=== PATIENT | female | born 1985 | race Caucasian/White ===

== ENCOUNTER 2018-01-09 08:58 | Outpatient (CLI) | payer OTHER | END 2018-01-09 09:05 | disposition home or self-care (01) | LOC: SONOGRAMA 08:58 | DX: E04.2 Nontoxic multinodular goiter (principal) ==

== ENCOUNTER 2018-12-07 11:04 | Day surgery (SDC) | payer OTHER | END 2018-12-07 16:25 | disposition home or self-care (01) | LOC: AMB-ENDOS 11:04 | DX: D13.1 Benign neoplasm of stomach (principal) ==

== ENCOUNTER 2018-12-14 10:35 | Outpatient (CLI) | payer OTHER | END 2018-12-14 10:38 | disposition home or self-care (01) | LOC: SONOGRAMA 10:35 | DX: E04.2 Nontoxic multinodular goiter (principal) ==

== ENCOUNTER 2019-01-31 10:43 | Outpatient (CLI) | payer OTHER | END 2019-01-31 10:52 | disposition home or self-care (01) | LOC: RX STUDY 10:43 | DX: R10.13 Epigastric pain (principal); K21.9 Gastro-esophageal reflux disease without esophagitis ==

== ENCOUNTER 2023-05-29 11:42 | Emergency (ER) | payer OTHER ==
[~2023-05-29] VITALS: Ht 165.1 cm; Wt 81.2 kg
== END 2023-05-29 14:17 | disposition home or self-care (01) ==
LOC: ER 11:42
DX: O26.833 Pregnancy related renal disease, third trimester (principal); B34.9 Viral infection, unspecified; Z20.822 Contact with and (suspected) exposure to COVID-19

== ENCOUNTER 2023-07-26 15:38 | Inpatient (IN) | payer OTHER ==
[~2023-07-26] VITALS: Ht 165.1 cm; Wt 86.2 kg
[2023-07-26] MEDS ORDERED: CONCEPT DHA CA1 EACH PO (16:57)
[2023-07-26] MEDS ORDERED: INFED50 MG/ML IV (16:59)
== END 2023-07-29 13:39 | disposition home or self-care (01) | DRG 807 ==
LOC: LDR 15:38 → OB/GYN 07-27 05:28
PROVIDERS: ADMIT Obstetrics & Gynecology; ATTEND Obstetrics & Gynecology
PROC: 3E0P7VZ Introduction of Hormone into Female Reproductive, Via Natural or Artificial Opening (ICD-10-PCS; 2023-07-26)
PROC: 4A1HXCZ Monitoring of Products of Conception, Cardiac Rate, External Approach (ICD-10-PCS; 2023-07-26)
PROC: 10E0XZZ Delivery of Products of Conception, External Approach (ICD-10-PCS; principal; 2023-07-27)
PROC: 0HQ9XZZ Repair Perineum Skin, External Approach (ICD-10-PCS; 2023-07-27)
PROC: 0UQMXZZ Repair Vulva, External Approach (ICD-10-PCS; 2023-07-27)
PROC: 3E033VJ Introduction of Other Hormone into Peripheral Vein, Percutaneous Approach (ICD-10-PCS; 2023-07-27)
DX: O70.0 First degree perineal laceration during delivery (principal); Z37.0 Single live birth; O71.82 Other specified trauma to perineum and vulva; O99.824 Streptococcus B carrier state complicating childbirth; Z3A.39 39 weeks gestation of pregnancy; Z20.822 Contact with and (suspected) exposure to COVID-19

== ENCOUNTER 2025-06-05 13:31 | Outpatient (CLI) | payer OTHER ==
[2025-06-05 12:11] VITALS: BP 113/73
[~2025-06-05 13:31] MED LIST: CONCEPT DHA CA1 EACH PO; INFED50 MG/ML IV
[2025-06-05] MEDS ORDERED: RINGERS SOLUTION,LACTATED 1,000 ML IV SCH (14:15)
[2025-06-05] MEDS ORDERED: PRENATAL 19 TA1 EAC2 PO (14:21)
[2025-06-05] MEDS ORDERED: NOXIFOL-D32500 UNIT PO (14:22)
[2025-06-05 14:42] LABS: BASO % 0.4 % (0.1-1.2); EOS # 0.06 (0.04-0.54); EOS % 0.6 % (0.7-7.0); LYMPH # 2.08 (1.18-3.74); LYMPH % 22.2 % (19.3-53.1); MEAN PLATELET VOLUME 10.70 fl (9.4-12.4); MONO # 0.79 (0.24-0.82); MONO % 8.4 % (4.7-12.5); NEUT # 6.32 (1.56-6.13); NEUT % 67.8 % (34.0-71.1); RED CELL DISTRIBUTION WIDTH 12.8 % (11.6-14.4)
[2025-06-05 14:43] LABS: URINE APPEARANCE Cloudy; URINE BILIRRUBIN Negative (NEGATIVE); URINE BLOOD Negative; URINE COLOR Yellow; URINE GLUCOSE Negative (NEGATIVE); URINE KETONE Trace (NEGATIVE); URINE LEUKOCYTE Small; URINE NITRATE Negative; URINE PROTEIN Negative (NEGATIVE); URINE UROBILINOGEN 1.0 E.U./dl
[2025-06-05 14:44] LABS: URINE BACTERIA 5449.0 uL (0.0-1933); URINE EPITHELIAL CELLS 85.8 uL (0.0-38.8); URINE RBC 8.3 uL (0.0-20.8); URINE WBC 30.6 uL (0.0-23.2)
[2025-06-05 15:14] LABS: ALT/SGPT 18.0 U/L (12-78); AST/SGOT 11.0 U/L (15-37); BILIRUBIN TOTAL 0.55 mg/dL (0.3-1.2); BUN CREA RATIO 10.0 (7.0-25.0); CREATININE SERUM 0.58 mg/dL (0.55-1.02); GFR 115.14; GLOBULINA 3.9 G/DL (2.4-3.5); GLUCOSE FASTING 86.0 mg/dL (65-100); OSMOLALITY SERUM 276.0 MOSM/KG (275-295)
[2025-06-05 15:31] LABS: INR 1.03
[2025-06-05 15:32] LABS: URINE CAST 0.43 uL (0.0-1.40); URINE CRYSTALS FEW /HPF; URINE MUCUS SCANT
[2025-06-05 15:33] LABS: TYPE CELLS SQUAMOUS; URINE YEAST FEW /hpf
[2025-06-05 15:36] VITALS: BP 118/72
[2025-06-05] MEDS ORDERED: ONDANSETRON HCL 2 MG/ML VIAL IV SCH (17:00)
[2025-06-05 20:33] VITALS: BP 117/75
[2025-06-05 23:22] VITALS: BP 106/69
[2025-06-06 03:32] VITALS: BP 94/59
[2025-06-06 06:17] VITALS: BP 96/60; O2SAT 100
[2025-06-06 10:47] VITALS: BP 96/60
== END 2025-06-06 10:59 | disposition home or self-care (01) ==
LOC: OBS/DEL 13:31
PROVIDERS: Obstetrics & Gynecology; ATTEND Obstetrics & Gynecology
DX: O26.893 Other specified pregnancy related conditions, third trimester (principal); R11.2 Nausea with vomiting, unspecified; Z3A.31 31 weeks gestation of pregnancy

== ENCOUNTER 2025-07-30 17:37 | Outpatient (CLI) | payer OTHER ==
[~2025-07-30] VITALS: Ht 165.1 cm; Wt 90.7 kg
[2025-07-30 17:13] VITALS: BP 113/70; O2SAT 100
[~2025-07-30 17:37] MED LIST changes: +NOXIFOL-D32500 UNIT PO; +PRENATAL 19 TA1 EAC2 PO
[2025-07-30] MEDS ORDERED: PEPCID AC20 MG PO (18:07)
[2025-07-30] MEDS ORDERED: RINGERS SOLUTION,LACTATED 1,000 ML IV SCH (20:00)
[2025-07-30] MEDS ORDERED: FAMOTIDINE/PF 20 MG in 0.9 % SODIUM CHLORIDE 8 ML IV PUSH PRN (20:00)
[2025-07-30] MEDS ORDERED: ACETAMINOPHEN 500 MG GEL..CAP PO PRN (20:00)
[2025-07-30 20:07] VITALS: BP 115/67; O2SAT 100
[2025-07-30] MEDS ORDERED: BUDESONIDE 0.5 MG/2 ML AMPUL.NEB IH SCH (21:00)
[2025-07-30] MEDS ORDERED: GUAIFENESIN 600 MG TABLET.SA PO SCH (21:00)
[2025-07-30 21:35] LABS: BASO % 0.5 % (0.1-1.2); EOS # 0.06 (0.04-0.54); EOS % 0.9 % (0.7-7.0); LYMPH # 1.59 (1.18-3.74); LYMPH % 24.2 % (19.3-53.1); MEAN PLATELET VOLUME 10.80 fl (9.4-12.4); MONO # 0.77 (0.24-0.82); MONO % 11.7 % (4.7-12.5); NEUT # 4.07 (1.56-6.13); NEUT % 62.1 % (34.0-71.1); RED CELL DISTRIBUTION WIDTH 13.6 % (11.6-14.4)
[2025-07-30] MEDS ORDERED: FAMOTIDINE/PF 20 MG/2 ML VIAL ONE (21:39)
[2025-07-30 21:56] LABS: INR 1.0
[2025-07-30 22:04] LABS: ALT/SGPT 15.0 U/L (12-78); AST/SGOT 17.0 U/L (15-37); BILIRUBIN TOTAL 0.54 mg/dL (0.3-1.2); BUN CREA RATIO 9.0 (7.0-25.0); CREATININE SERUM 0.69 mg/dL (0.55-1.02); GFR 94.23; GLOBULINA 3.9 G/DL (2.4-3.5); GLUCOSE FASTING 76.0 mg/dL (65-100); OSMOLALITY SERUM 276.0 MOSM/KG (275-295)
[2025-07-30 23:39] VITALS: BP 112/68; O2SAT 98
[2025-07-31 03:20] VITALS: BP 117/66
[2025-07-31 07:37] VITALS: BP 125/77
== END 2025-07-31 10:39 | disposition home or self-care (01) ==
LOC: OBS/DEL 17:37
PROVIDERS: ATTEND Obstetrics & Gynecology Gynecology
DX: O26.893 Other specified pregnancy related conditions, third trimester (principal); O36.8130 Decreased fetal movements, third trimester, not applicable or unspecified; O13.3 Gestational [pregnancy-induced] hypertension without significant proteinuria, third trimester; R51.9 Headache, unspecified; Z3A.38 38 weeks gestation of pregnancy

== ENCOUNTER 2025-08-06 23:39 | Inpatient (IN) | payer OTHER ==
[~2025-08-06] VITALS: Ht 165.1 cm; Wt 90.3 kg
[2025-08-06 23:17] VITALS: BP 137/71
[~2025-08-06 23:39] MED LIST changes: +PEPCID AC20 MG PO
[2025-08-06] MEDS ORDERED: MORPHINE SULFATE 4 MG/ML CARTRIDGE IV PRN (23:45)
[2025-08-06] MEDS ORDERED: RINGERS SOLUTION,LACTATED 1,000 ML IV SCH (23:45)
[2025-08-07] VITALS (7 sets, daily range): BP systolic 109–138; BP diastolic 58–73
[2025-08-07 01:38] LABS: ALT/SGPT 16.0 U/L (12-78); AST/SGOT 16.0 U/L (15-37); BILIRUBIN TOTAL 0.49 mg/dL (0.3-1.2); BUN CREA RATIO 14.0 (7.0-25.0); CREATININE SERUM 0.74 mg/dL (0.55-1.02); GFR 86.92; GLOBULINA 4.2 G/DL (2.4-3.5); GLUCOSE FASTING 73.0 mg/dL (65-100); OSMOLALITY SERUM 277.0 MOSM/KG (275-295)
[2025-08-07 01:58] LABS: INR 0.97
[2025-08-07 02:18] LABS: BASO % 0.2 % (0.1-1.2); EOS # 0.03 (0.04-0.54); EOS % 0.4 % (0.7-7.0); LYMPH # 2.33 (1.18-3.74); LYMPH % 28.1 % (19.3-53.1); MEAN PLATELET VOLUME 10.90 fl (9.4-12.4); MONO # 0.84 (0.24-0.82); MONO % 10.1 % (4.7-12.5); NEUT # 5.02 (1.56-6.13); NEUT % 60.6 % (34.0-71.1); RED CELL DISTRIBUTION WIDTH 13.8 % (11.6-14.4)
[2025-08-07] MEDS ORDERED: MORPHINE SULFATE 4 MG/ML VIAL IV STA (02:34)
[2025-08-07] MEDS ORDERED: OXYTOCIN 1,000 ML IV SCH (07:00)
[2025-08-07] MEDS ORDERED: ACETAMINOPHEN WITH CODEINE 1 UDTAB TABLET PO PRN (07:00)
[2025-08-07] MEDS ORDERED: CHLORHEXIDINE GLUCONATE 120 ML BOTTLE TOP ONE (07:00)
[2025-08-07] MEDS ORDERED: ERYTHROMYCIN BASE OPHT 1GM EACH TUBE OP ONE (07:30)
[2025-08-07] MEDS ORDERED: OXYTOCIN 10 UNIT/ML (10ML) IV ONE (07:30)
[2025-08-07] MEDS ORDERED: LIDOCAINE HCL 1% 10ML VIAL PERCUT ONE (07:30)
[2025-08-07] MEDS ORDERED: SOD FERRIC GLUC COMPLX/SUCROSE 125 MG in 0.9 % SODIUM CHLORIDE 100 ML IV SCH (09:00)
[2025-08-08 01:17] VITALS: BP 97/63
[2025-08-08 04:00] VITALS: BP 98/64
[2025-08-08 09:06] VITALS: BP 125/82
[2025-08-08 16:18] VITALS: BP 127/78
[2025-08-09] VITALS: BP 129/76
[2025-08-09 08:46] VITALS: BP 137/84; O2SAT 99
== END 2025-08-09 13:10 | disposition home or self-care (01) | DRG 807 ==
LOC: LDR 23:39 → OB/GYN 23:39
PROVIDERS: ADMIT Obstetrics & Gynecology; ATTEND Obstetrics & Gynecology
PROC: 4A1HXCZ Monitoring of Products of Conception, Cardiac Rate, External Approach (ICD-10-PCS; 2025-08-06)
PROC: 10E0XZZ Delivery of Products of Conception, External Approach (ICD-10-PCS; principal; 2025-08-07)
PROC: 0W8NXZZ Division of Female Perineum, External Approach (ICD-10-PCS; 2025-08-07)
DX: O80 Encounter for full-term uncomplicated delivery (principal); Z37.0 Single live birth; Z3A.39 39 weeks gestation of pregnancy